=== PATIENT | male | born 1965 | race American Indian/Alaskan Native ===

== ENCOUNTER 2022-02-12 20:05 | Emergency (ER) | payer SELFPAY ==
[2022-02-12 20:43] VITALS: BP 87/56
[2022-02-12] MEDS ORDERED: SODIUM CHLORIDE 0.9% 1000 ML 1,000 ML IV ONE (22:54)
[2022-02-12] MEDS ORDERED: SODIUM CHLORIDE 0.9% 1000 ML 1,000 ML ONE ×3 (22:54→22:55)
[2022-02-12] MEDS ORDERED: LIDOCAINE VISCOUS 2% 15 ML ORAL LIQD PO ONE (22:55)
[2022-02-12] MEDS ORDERED: METOCLOPRAMIDE 10 MG/2 ML INJ IV ONE (22:55)
[2022-02-12] MEDS ORDERED: ALUM-MAG HYDROXIDE-SIMETHICONE 200-200-20MG/5ML ORAL LIQD 30 ML PO ONE (22:55)
--- NOTE | 2022-02-12 23:01 | Emergency Department Report ---
ED General Adult HPI - General Chief complaint: GI Bleed Stated complaint: VOMITING/ANOREXIA X 4DAYS Time Seen by Provider: 02/12/22 21:55 Source: EMS Mode of arrival: Stretcher Limitations: No Limitations - History of Present Illness Initial comments: 56 yo M with h/o chronic alcoholic who present tonight with hiccup that is been intermittent for the last couple of years. Pt says he has been seen at [facility] with no improvement. He denies any fever or chills. No other modifying or associated factors reported. - Related Data Allergies Allergy/AdvReac Type Severity Reaction Status Date / Time No Known Allergies Allergy Unverified 02/12/22 20:43 ED Review of Systems ROS: Stated complaint: VOMITING/ANOREXIA X 4DAYS Other details as noted in HPI Comment: All other systems reviewed and negative Gastrointestinal: nausea, vomiting, other (hiccup ) Neurological: weakness ED Past Medical Hx - Past Medical History Previous Medical History?: Yes Hx Psychiatric Treatment: Yes Additional medical history: ETOH abuse - Surgical History Past Surgical History?: No - Social History Smoking Status: Current Every Day Smoker Substance Use Type: Alcohol ED Physical Exam - General Limitations: No Limitations General appearance: alert, in no apparent distress - Head Head exam: Present: normal inspection - ENT ENT exam: Present: normal orophraynx - Neck Neck exam: Present: normal inspection, full ROM. Absent: tenderness - Respiratory Respiratory exam: Present: normal lung sounds bilaterally. Absent: respiratory distress, accessory muscle use - Cardiovascular Cardiovascular Exam: Present: regular rate, normal rhythm, normal heart sounds - GI/Abdominal GI/Abdominal exam: Present: soft, normal bowel sounds. Absent: distended, tenderness - Extremities Exam Extremities exam: Present: normal inspection, full ROM, normal capillary refill. Absent: pedal edema - Back Exam Back exam: Absent: tenderness - Neurological Exam Neurological exam: Present: alert, oriented X3 - Psychiatric Psychiatric exam: Present: normal affect, normal mood - Skin Skin exam: Present: warm ED Course Vital Signs 02/12/22 20:33 Temperature 98.5 F Pulse Rate 113 H Respiratory 20 Rate Blood Pressure 87/56 O2 Sat by Pulse 98 Oximetry ED Medical Decision Making - Lab Data Result diagrams: 02/12/22 23:21 02/12/22 23:21 - Medical Decision Making here with intermittent hiccup -- will go ahead with given Reglan + ivf ns 1L bolus + and check routine labs-- lab reviewed and noted with low potassium at 2.6 replaced with 40 mEq PO x 1 and also with low Na+ at 127 mg/dl -- pt is hydrated with ns ivf 1L x bolus x 1-- BUN/Cr 105/4.3 --consistent with acute on chronic renal insufficiency-- with low H&H 10.5/31.2 likely as result of the chronic renal failure-- Since there is not acute finding except the potassium that was replaced -- pt is stable enough to be discharge home with close follow up with his PCP -- Critical care attestation.: If time is entered above; I have spent that time in minutes in the direct care of this critically ill patient, excluding procedure time. ED Disposition Clinical Impression: Intractable hiccups, Acute on chronic renal insufficiency, Hypokalemia, Hyponatremia Nausea and vomiting Qualifiers: Vomiting type: unspecified Qualified Code(s): R11.2 - Nausea with vomiting, unspecified Anemia Qualifiers: Anemia type: unspecified type Qualified Code(s): D64.9 - Anemia, unspecified Disposition: 01 HOME / SELF CARE / HOMELESS Is pt being admited?: No Does the pt Need Aspirin: No Condition: Stable Instructions: Food Basics for Chronic Kidney Disease, Nausea and Vomiting, Adult, [id number], Potassium Content of Foods, Chronic Kidney Disease, Adult, [id number] Additional Instructions: Continue your current medication management to continue to help your symptoms Call and schedule follow-up with your primary doctor in the next 3 to 5 days for progress Please do not hesitate to call or return to emergency room if your symptoms worsen Referrals: ZION COOLEY MD [Primary Care Provider] - 3-5 Days Forms: Accompanied Note Time of Disposition: 05:55
[2022-02-12 23:45] LABS: Basophils # (Auto) 0.2 K/mm3 (0.0-0.1); Basophils % (Auto) 2.9 % (0.0-1.8); Eosinophils % (Auto) 0.3 % (0.0-4.3); Hematocrit 31.2 % (35.5-45.6); Hemoglobin 10.5 gm/dl (11.8-15.2); Lymphocytes % (Auto) 16.5 % (13.4-35.0); Mean Corpuscular HGB Conc 34 % (32-34); Mean Corpuscular Volume 101 fl (84-94); Monocytes # (Auto) 0.8 K/mm3 (0.0-0.8); Monocytes % (Auto) 13.2 % (0.0-7.3); Platelet Count 391 K/mm3 (140-440); Red Blood Count 3.09 M/mm3 (3.65-5.03); Red Cell Distribution Width 13.9 % (13.2-15.2)
[2022-02-12 23:52] LABS: INR 0.92 (0.87-1.13)
[2022-02-12 23:53] LABS: Partial Thromboplastin Time 27.1 Sec. (24.2-36.6)
[2022-02-13 00:06] LABS: Albumin 3.6 g/dL (3.9-5); Calcium 9.1 mg/dL (8.4-10.2)
[2022-02-13] MEDS ORDERED: POTASSIUM CHLORIDE ER 20 MEQ TAB PO ONE ×2 (04:10→04:12)
[2022-02-13 05:14] LABS: RBC,Urine < 1.0 /HPF (0.0-6.0); WBC,Urine < 1.0 /HPF (0.0-6.0)
[2022-02-13 05:26] LABS: Bilirubin,Urine Negative (Negative); Blood,Urine Negative (Negative); Color,Urine Yellow (Yellow)
== END 2022-02-13 06:23 | disposition home or self-care (01) ==
LOC: ED 20:05
DX: R11.2 Nausea with vomiting, unspecified (principal); R06.6 Hiccough; N17.9 Acute kidney failure, unspecified; E87.6 Hypokalemia; E87.1 Hypo-osmolality and hyponatremia; D64.9 Anemia, unspecified; F17.200 Nicotine dependence, unspecified, uncomplicated; F10.20 Alcohol dependence, uncomplicated
CPT/HCPCS: 36415; 80053; 81001; 82140; 83690; 85025; 85610; 85730; 96361; 96374; 99284; J2765; J7030